=== PATIENT | female | born 1985 | race Two or more races ===

== ENCOUNTER 2021-02-21 11:44 | Emergency (ER) | payer OTHER ==
[~2021-02-21] VITALS: Ht 160 cm; Wt 68.2 kg
[2021-02-21] MEDS ORDERED: ACETAMINOPHEN 500 MG TABLET PO ONE (12:15)
[2021-02-21 12:38] LABS: COVID AG,FIA SOURCE NASOPHARYNGEAL
[2021-02-21 13:48] VITALS: BP 116/73
== END 2021-02-21 14:16 | disposition home or self-care (01) ==
LOC: EMS 11:49
DX: B34.9 Viral infection, unspecified (principal); Z20.822 Contact with and (suspected) exposure to COVID-19
CPT/HCPCS: 87430; 99283